=== PATIENT | male | born 1955 | race Caucasian/White ===

== ENCOUNTER 2020-08-15 19:19 | Emergency (ER) | payer OTHER ==
[~2020-08-15 19:19] MED LIST: ACTOS30 MG PO; FISH OIL 1,0001 EAC1 PO; GLIPIZIDE10 MG PO; JARDIANCE25 MG PO; METFORMIN HCL1000 MG PO
== END 2020-08-15 21:22 | disposition home or self-care (01) ==
LOC: ER1 19:19
DX: S61.011A Laceration without foreign body of right thumb without damage to nail, initial encounter (principal); E11.9 Type 2 diabetes mellitus without complications; W26.8XXA Contact with other sharp object(s), not elsewhere classified, initial encounter; Y92.009 Unspecified place in unspecified non-institutional (private) residence as the place of occurrence of the external cause
CPT/HCPCS: 12031; 99283